=== PATIENT | male | born 1975 | race Two or more races ===

== ENCOUNTER 2016-09-28 11:27 | Emergency (ER) | payer BC, OTHER ==
[~2016-09-28] VITALS: Ht 165.1 cm; Wt 95.3 kg
[~2016-09-28 11:27] MED LIST: Famotidine 20 MG/ 2ML VIAL IVP ONE; IBUPROFEN600 MG ORAL; Morphine Sulfate 2mg/ml Inj ONE; NORCO 5-325 TA1 EACH ORAL
[2016-09-28 12:00] VITALS: BP 137/90
[2016-09-28] MEDS ORDERED: Famotidine 20 MG/ 2ML VIAL IVP ONE (12:00)
[2016-09-28] MEDS ORDERED: Morphine Sulfate 2mg/ml Inj IVP ONE (12:00)
[2016-09-28 13:14] LABS: EOSINOPHILS % (AUTO) 4.3 % (0.0-3.0); LYMPHOCYTES % (AUTO) 27.3 % (20.0-45.0); MEAN CORPUSCULAR HEMOGLOBIN 30.9 PG (27.0-31.0); MEAN CORPUSCULAR HGB CONC 33.9 G/DL (32.0-36.0); MEAN CORPUSCULAR VOLUME 91 FL (80-99); MEAN PLATELET VOLUME 8.8 FL (6.5-10.1); MONOCYTES % (AUTO) 12.1 % (1.0-10.0); NEUTROPHILS % (AUTO) 54.4 % (45.0-75.0); PLATELET COUNT 222 K/UL (150-450); RED BLOOD COUNT 5.78 M/UL (4.70-6.10); RED CELL DISTRIBUTION WIDTH 11.2 % (11.6-14.8); WHITE BLOOD COUNT 10.7 K/UL (4.8-10.8)
[2016-09-28 13:17] LABS: APPEARANCE,URINE CLEAR; KETONES,URINE NEGATIVE (NEGATIVE); LEUKOCYTE ESTERASE ,URINE 1+ (NEGATIVE); NITRITE,URINE NEGATIVE (NEGATIVE); PH,URINE 7 (4.5-8.0); PROTEIN,URINE NEGATIVE (NEGATIVE); UROBILINOGEN,URINE NORMAL MG/DL (0.0-1.0)
[2016-09-28 13:27] LABS: PROTHROMBIN TIME 10.5 SEC (9.30-11.50)
[2016-09-28 13:29] LABS: BACTERIA,URINE FEW /HPF; SQUAMOUS EPITHELIAL CELL,UR OCCASIONAL /LPF (NONE/OCC)
[2016-09-28 13:31] LABS: TROPONIN I < 0.30 ng/mL (<=0.30)
[2016-09-28 13:36] LABS: ALANINE AMINOTRANSFERASE 49 U/L (3-41); ALBUMIN/GLOBULIN RATIO 1.6 (1.0-2.7); ANION GAP 15 (5-15); ASPARTATE AMINO TRANSFERASE 33 U/L (5-40); CALCIUM 9.8 mg/dL (8.6-10.2); CARBON DIOXIDE 26 mEQ/L (20-30); CHLORIDE 94 mEQ/L (98-107); GLOMERULAR FILTRATION RATE > 60 mL/min (>60); HEMOLYSIS 30; LIPASE 54 U/L (< 60); POTASSIUM 4.5 mEQ/L (3.4-4.9); SODIUM 135 mEQ/L (135-145); TOTAL PROTEIN 6.9 g/dL (6.6-8.7)
[2016-09-28 14:00] VITALS: BP 143/90
--- NOTE | 2016-09-28 14:24 | Emergency Room Report ---
History of Present Illness General Chief Complaint: Palpitations Source: Patient Present Illness HPI Patient presents with palpitations. He also has epigastric pain. He was drinking alcohol heavily yesterday. He states it wasn't that much but he then states it was 8 beers. He still feels like his heart is pounding at this time. Is worse when he stands up. His epigastric pain is burning pressure 7/10, constant. No vomit blood or melena. There is a suggestion he also has mitral valve prolapse. No fever, URI, chest pain, extremity pain, dysuria, rashes, change in vision, problems with glucose. States had a coma. Apparently this occurred in [place] when he took overdose of pain and sleeping medications. After he was on Topamax, clonazepam and olanzapine. Made him too "drunk" so he stopped. He now uses alcohol. He states he has problems sleeping. He is using alcohol to help him sleep at night - usually only gets 2-4 hours/night. Not suicidal. Has been seen here for panic attacks. His daughter is ill with URI and is being seen. Allergies: Coded Allergies: No Known Allergies (Unverified , 08/10/15) Patient History Past Medical History: see triage record Social History: Reports: alcohol use, Denies: smoking Social History Narrative with 2 kids - works installing safety features for [employer] Reviewed Nursing Documentation: PMH: Agreed, PSxH: Agreed Nursing Documentation-PM Past Medical History: No History, Except For Review of Systems All Other Systems: negative except mentioned in HPI Physical Exam Vital Signs Date Time Temp Pulse Resp B/P Pulse Ox O2 Delivery O2 Flow Rate FiO2 09/28/16 11:42 98.4 84 18 153/100 97 Room Air Sp02 EP Interpretation: reviewed, normal General Appearance: well appearing, no apparent distress, GCS 15, other - anxious Head: normocephalic Eyes: bilateral eye PERRL, bilateral eye Scleral Injection, bilateral eye normal inspection ENT: moist mucus membranes Neck: supple Respiratory: chest non-tender, lungs clear, normal breath sounds Cardiovascular #1: regular rate, rhythm Cardiovascular #2: 2+ radial (R) Gastrointestinal: normal inspection, normal bowel sounds, no mass, non- distended, tenderness - minimal epigastric Musculoskeletal: back normal, gait/station normal, normal range of motion Neurologic: alert, oriented x3, motor strength/tone normal, DTRs symmetric, sensory intact, cerebellar normal, speech normal Psychiatric: anxious Skin: normal inspection, warm/dry, other - slightly plethoric Medical Decision Making Diagnostic Impression: Primary Impression: Palpitations Additional Impressions: Dehydration Alcohol withdrawal Qualified Codes: F10.230 - Alcohol dependence with withdrawal, uncomplicated Anxiety ER Course Patient with palpitations and epigastric pain. DDx: AMI, ACS, gastritis, electrolyte abnormality, viral syndrome, anxiety, alcohol withdrawal, MVP amongst others. Emergent evaluation with EKG, CXR, labs. Treatment with IV hydration, pepcid, ativan. Of note: with observation on monitor with NSR, he states he still feels the palpitations and pressure in his chest. EKG NSR. Labs with hemoconcentration. Improved with treatment. Discussed need to stop alcohol and seek psychiatric and medical care (he does not have a PMD at this time). He asked for something to help sleep. Reviewed prior meds (and fact he overdosed in past). Benadryl prescribed. Patient stable for outpatient observation and treatment. Laboratory Tests Test 09/28/16 12:34 09/28/16 12:50 White Blood Count 10.7 K/UL (4.8-10.8) Red Blood Count 5.78 M/UL (4.70-6.10) Hemoglobin 17.9 G/DL (14.2-18.0) Hematocrit 52.7 % (42.0-52.0) H Mean Corpuscular Volume 91 FL (80-99) Mean Corpuscular Hemoglobin 30.9 PG (27.0-31.0) Mean Corpuscular Hemoglobin Concent 33.9 G/DL (32.0-36.0) Red Cell Distribution Width 11.2 % (11.6-14.8) L Platelet Count 222 K/UL (150-450) Mean Platelet Volume 8.8 FL (6.5-10.1) Neutrophils (%) (Auto) 54.4 % (45.0-75.0) Lymphocytes (%) (Auto) 27.3 % (20.0-45.0) Monocytes (%) (Auto) 12.1 % (1.0-10.0) H Eosinophils (%) (Auto) 4.3 % (0.0-3.0) H Basophils (%) (Auto) 2.0 % (0.0-2.0) Prothrombin Time 10.5 SEC (9.30-11.50) Prothrombin Time INR 1.0 (0.9-1.1) PTT 24 SEC (23-33) Sodium Level 135 mEQ/L (135-145) Potassium Level 4.5 mEQ/L (3.4-4.9) Chloride Level 94 mEQ/L (98-107) L Carbon Dioxide Level 26 mEQ/L (20-30) Anion Gap 15 (5-15) Blood Urea Nitrogen 11 mg/dL (7-23) Creatinine 1.0 mg/dL (0.7-1.2) Estimate Glomerular Filtration Rate > 60 mL/min (>60) Glucose Level 93 mg/dL (74-106) Calcium Level 9.8 mg/dL (8.6-10.2) Total Bilirubin 0.4 mg/dL (0.0-1.2) Aspartate Amino Transferase (AST) 33 U/L (5-40) Alanine Aminotransferase (ALT) 49 U/L (3-41) H Alkaline Phosphatase 86 U/L (40-129) Total Creatine Kinase 129 U/L (38-174) Troponin I < 0.30 ng/mL (<=0.30) Total Protein 6.9 g/dL (6.6-8.7) Albumin 4.3 g/dL (3.5-5.2) Globulin 2.6 g/dL Albumin/Globulin Ratio 1.6 (1.0-2.7) Lipase 54 U/L (< 60) Urine Color Pale yellow Urine Appearance Clear Urine pH 7 (4.5-8.0) Urine Specific [place] 1.010 (1.005-1.035) Urine Protein Negative (NEGATIVE) Urine Glucose (UA) Negative (NEGATIVE) Urine Ketones Negative (NEGATIVE) Urine Occult Blood 1+ (NEGATIVE) H Urine Nitrite Negative (NEGATIVE) Urine Bilirubin Negative (NEGATIVE) Urine Urobilinogen Normal MG/DL (0.0-1.0) Urine Leukocyte Esterase 1+ (NEGATIVE) H Urine RBC 2-4 /HPF (0 - 0) H Urine WBC 2-4 /HPF (0 - 0) Urine Squamous Epithelial Cells Occasional /LPF Urine Bacteria Few /HPF (NONE) EKG Diagnostic Results Rate: normal Rhythm: NSR ST Segments: no acute changes Rhythm Strip Diag. Results EP Interpretation: yes Rhythm: NSR, no PVC's, no ectopy Chest X-Ray Diagnostic Results EP Interpretation: Yes Findings: no consolidation, no effusion, no pneumothorax, no acute cardiopulmonary disease Number of Views: 1 Last Vital Signs Date Time Temp Pulse Resp B/P Pulse Ox O2 Delivery O2 Flow Rate FiO2 09/28/16 15:20 66 17 136/90 98 Room Air 09/28/16 14:00 98.2 Status: improved Disposition: HOME, SELF-CARE Condition: Improved Scripts Diphenhydramine Hcl* (BENADRYL*) 25 Mg Capsule 25 MG ORAL Q6H Y for sleep, #10 CAP Prov: Magdiel Mcknight M.D. 09/28/16 Famotidine (PEPCID) 20 Mg Tablet 20 MG ORAL DAILY, #30 TAB 0 Refills Prov: Magdiel Mcknight M.D. 09/28/16 Referrals: NOT [facility]OSEN [facility]/,REFERRING (PCP) Magdiel Mcknight M.D. Sep 28, 2016 14:24
[2016-09-28] MEDS ORDERED: BENADRYL25 MG ORAL (14:36)
[2016-09-28] MEDS ORDERED: PEPCID20 MG ORAL (14:36)
[2016-09-28 15:20] VITALS: BP 136/90
--- NOTE | 2016-09-29 10:24 | Diagnostic Imaging Report ---
Indication: Abdominal pain Technique: One view of the chest Comparison: none Findings: Lungs and pleural spaces are clear. Heart size is normal. Impression: Negative This agrees with the preliminary interpretation provided by the emergency room physician
--- NOTE | 2016-09-29 10:27 | Diagnostic Imaging Report ---
Indication: Abdominal pain Technique: Supine view of the abdomen Comparison: 08/10/2015 Findings: Exam is limited, as portion of the abdomen is cut off of the exam. Per technologist, patient did not wish repeat. A bone island is seen in the right sacrum. There is transitional lumbosacral anatomy again demonstrated. Bowel gas pattern is unremarkable. No unusual masses or calcifications. Impression: Limited exam No definite acute process This agrees with the preliminary interpretation provided by the emergency room physician
--- NOTE | 2016-09-29 19:50 | Cardiology Report ---
APPROVED REPORT EKG Measurement Heart [id number] Normal sinus rhythm Normal ECG
== END 2016-09-28 15:20 | disposition home or self-care (01) ==
LOC: EMR 12:16
DX: R00.2 Palpitations (principal); E86.0 Dehydration; F10.239 Alcohol dependence with withdrawal, unspecified; R10.13 Epigastric pain
CPT/HCPCS: 36415; 71010; 74000; 80053; 81003; 82550; 83690; 84484; 85025; 85610; 85730; 93005; 96360; 96374; 96375; 99284; J2270; J2405; S0028